=== PATIENT | male | born 1990 | race Native Hawaiian/Other Pacific Islander ===

== ENCOUNTER 2016-10-27 22:53 | Emergency (ER) | payer OTHER ==
[2016-10-27 23:00] VITALS: BP 137/92; PULSE 91; RESP 16; TEMP 98.4; O2SAT 99
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
--- NOTE | 2016-10-28 12:16 | RAD ---
PROCEDURE: Cervical Spine Radiographs. AP lateral and open-mouth of the cervical spine performed. Note that the study is limited due to partial obscuration of the odontoid by occiput in the open-mouth projection HISTORY: Pain. COMPARISON: None. FINDINGS: BONES: No acute compression fractures no retropulsed fragments. Vertebral bodies exhibit normal stature and relatively normal alignment. DISC SPACES: Disc space heights are relatively maintained. Tiny osteophytes are seen arising from the posterior inferior corners of the C5 and to a lesser degree C4 segments and C6 segments. SOFT TISSUES: Prevertebral soft tissues unremarkable. OTHER FINDINGS: Minor biapical pleural thickening. IMPRESSION: No acute fractures within limitation of the study; note that the odontoid is incompletely visualized as detailed above go. Tiny posterior osteophyte seen arising from the posterior inferior corners of the C5 and to a lesser degree C4 and C6 segments. . If symptoms persist or occult fracture suspected clinically recommend followup CT scan or MRI. . Note this report was placed in [facility] review folder for followup.
== END 2016-10-28 00:30 | disposition home or self-care (01) ==
LOC: C.ER 22:53
DX: S13.9XXA Sprain of joints and ligaments of unspecified parts of neck, initial encounter (principal); S80.12XA Contusion of left lower leg, initial encounter; V89.2XXA Person injured in unspecified motor-vehicle accident, traffic, initial encounter